=== PATIENT | male | born 1965 | race Caucasian/White ===

== ENCOUNTER 2018-09-09 10:11 | Inpatient (IN) | payer OTHER ==
[~2018-09-09] VITALS: Ht 193 cm; Wt 158.5 kg
[2018-09-09 10:21] VITALS: Ht 193 cm; Wt 158.5 kg
--- NOTE | 2018-09-09 11:01 | NUR ---
LAB AT BEDSIDE
--- NOTE | 2018-09-09 11:11 | NUR ---
PT EDUCATED ON MEDICATION PER EMAR, VERBALIZED UNDERSTANDING. MARCELL CASTRO DURING INJECTION. PT TOLERATED WELL. PT STS HE WILL TRY TO GIVE URINE SAMPLE SOON. CALL LIGHT WITHIN REACH.
[2018-09-09 11:23] LABS: CALCIUM 9.8 mg/dL (8.5-10.1); CHLORIDE SERUM 104 mmol/L (98-107); CREATININE SERUM 0.9 mg/dL (0.7-1.3); GFR1 > 60 mL/min; GLUCOSE SERUM 193 mg/dL (74-106); POTASSIUM SERUM 4.6 mmol/L (3.5-5.1); SODIUM SERUM 142 mmol/L (136-145)
[2018-09-09 11:28] LABS: ALBUMIN 3.5 g/dL (3.4-5.0); ALKALINE PHOSPHATASE 82 U/L (46-116); ALT/SGPT 32 U/L (16-63); AST/SGOT 15 U/L (15-37); BILIRUBIN TOTAL 0.5 mg/dL (0.20-1.00); TOTAL PROTEIN, SERUM 7.6 g/dL (6.4-8.2)
[2018-09-09 11:58] LABS: PLATELET COUNT 187 x10^3mcL (130-400); RED CELL DISTRIBUTION WIDTH 14.1 % (11.5-14.5)
--- NOTE | 2018-09-09 11:58 | NUR ---
AT BEDSIDE DISCUSSING POC WITH PT
[2018-09-09 11:59] LABS: BASOPHIL % 0.3 % (0-2)
[2018-09-09 12:15] LABS: UA SPECIFIC GRAVITY >=1.030 (1.005-1.035); microscopic required? YES; urine erythrocyte 1+ (NEGATIVE)
[2018-09-09] MEDS ORDERED: CORE25 (12:36)
[2018-09-09] MEDS ORDERED: NOR10T (12:37)
[2018-09-09] MEDS ORDERED: LOSARTAN POTASS25 M1 (12:37)
--- NOTE | 2018-09-09 12:59 | NUR ---
CALLED REPORT TO STEFANIA GRANT IN TELE TO ASSUME CARE OF PT.
[2018-09-09 13:26] VITALS: BP 153/71
--- NOTE | 2018-09-09 13:29 | NUR ---
RECEIVED PT FROM ED [facility]IA [facility]. ORIENTED PT TO ROOM AND SURROUNDINGS. IV NOTED TO LAC PATENT AND INTACT. TELE 4 PLACED ON PT READING NSR. INSTRUCTED PT ON THE USE OF CALL LIGHT FOR ASSISTANCE. ENDORSED PT TO PRIMARY NURSE JUANITA
--- NOTE | 2018-09-09 14:19 | NUR ---
ECHOCARDIOGRAM PENDING-WITH NURSE
--- NOTE | 2018-09-09 15:02 | NUR ---
ECHO IN PROGRESS.
--- NOTE | 2018-09-09 15:53 | NUR ---
SPOT GLU CHECK 134. PT RESTING IN BED, NO C/O CHEST PAIN AT THIS TIME. IVF STARTED AND INFUSING WELL.
[2018-09-09 16:24] VITALS: BP 118/65
--- NOTE | 2018-09-09 18:36 | NUR ---
REMAINS IN NO DISTRESS, AWAKE AND ALERT. NO CHANGES IN VS. NO C/O CHEST PAIN AT THIS TIME.IVF INFUSING WELL AND SITE CLEAR. CALL LIGHT WITHIN REACH. WILL BE ENDORSED TO INCOMING SHIFT.
--- NOTE | 2018-09-09 18:58 | NUR ---
C/O LT FLANK PAIN 12/03, MEDICATED WITH NORCO PO PER ORDER. WILL BE ENDORSED TO INCOMING SHIFT.
[2018-09-09 19:48] VITALS: BP 112/64
--- NOTE | 2018-09-09 19:53 | NUR ---
PT CURRENTLY RESTING IN BED, NO ACUTE DISTRESS. A/O X4. TELE #4 SHOWING SINUS RHYTHM, DENIES CHEST PAIN. PULSES PALPABLE IN ALL EXTREMITIES, BLE EDEMA +2 NOTED. LUNG SOUNDS CTA BILATERALLY, DENIES SOB. BOWEL SOUNDS ACTIVE, LAST BM 09/09/18. PT REPORTS DYSURIA. AMBULATORY. SKIN INTACT. IV PATENT AND INTACT. BED IN LOWEST POSITION, SIDE RAILS UP X2, CALL LIGHT WITHIN REACH. WILL CONTINUE TO MONITOR.
--- NOTE | 2018-09-10 01:28 | NUR ---
PT CURRENTLY RESTING IN BED, NO ACUTE DISTRESS. WILL CONTINUE TO MONITOR.
[2018-09-10 04:52] VITALS: BP 139/73
--- NOTE | 2018-09-10 05:01 | NUR ---
INFORMED BY TELE, PT EXPERIENCED BRIEF EPISODE OF VTACH. NO ACUTE DISTRESS. VITAL SIGNS STABLE, PT CURRENTLY RESTING IN BED. DR ANH MCKEON. WILL CONTINUE TO MONITOR.
--- NOTE | 2018-09-10 06:02 | NUR ---
PT SLEPT PERIODICALLY THROUGHOUT NIGHT, NO ACUTE DISTRESS. ALL NEEDS MET AND ATTENDED TO. NO SIGNIFICANT CHANGES. IV PATENT AND INTACT. BED IN LOWEST POSITION, SIDE RAILS UP X2, CALL LIGHT WITHIN REACH. WILL ENDORSE CARE TO ONCOMING NURSE.
[2018-09-10 07:14] LABS: BASOPHIL % 0.4 % (0-2); PLATELET COUNT 142 x10^3mcL (130-400); RED CELL DISTRIBUTION WIDTH 14.5 % (11.5-14.5)
--- NOTE | 2018-09-10 07:15 | NUR ---
RECIEVED PT FROM NIGHT NURSE. PT IS LAYING DOWN IN BED WITH HOB UP. RESPIRATIONS EVEN AND UNLABORED ON ROOM AIR. PT LOOKS TO BE IN NO ACUTE DISTRESS AT THIS TIME. TELE MONITOR PRESENT. IV SITE PATENT WITH NO SIGNS OF ERYTHEMA OR SWELLING WITH IV FLUIDS INFUSING. BED IN LOWEST POSITION, CALL LIGHT WITHIN REACH. WILL CONITNUE TO MONITOR.
[2018-09-10 07:22] LABS: CALCIUM 8.9 mg/dL (8.5-10.1); CARBON DIOXIDE 29.6 mmol/L (21-32); CHLORIDE SERUM 105 mmol/L (98-107); CREATININE SERUM 0.8 mg/dL (0.7-1.3); GFR1 > 60 mL/min; GLUCOSE SERUM 128 mg/dL (74-106); POTASSIUM SERUM 4.3 mmol/L (3.5-5.1); SODIUM SERUM 142 mmol/L (136-145)
--- NOTE | 2018-09-10 07:35 | NUR ---
IV IS BEEPING HIGH PRESSURE ALARM. IV SITE FLUSHING WELL AND HAS NO SIGNS OF ERYTHEMA OR SWELLING. PT IS REQUESTING TO HAVE A NEW IV TO PREVENT BEEPING SINCE PT STATES HE DID NOT GET MUCH SLEEP LAST NIGHT RELATED TO THE IV BEEPING. WILL START NEW IV.
[2018-09-10 08:11] VITALS: BP 151/98
--- NOTE | 2018-09-10 09:15 | NUR ---
ASSESSED PT FROM NEW IV SITE. PT REFUSD IV TO HANDS, OTHER THAN THE HANDS, WAS UNABLE TO FIND A GOOD IV SITE TO START A NEW IV. PT STATED OKAY WITH KEEPING OLD IV AND STATED WILL TRY NOT TO MOVE THE ALARM TO PREVENT HIGH PRESSURE ALARM TO IV. WILL CONTINUE TO MONITOR.
[2018-09-10 13:11] VITALS: BP 145/87
--- NOTE | 2018-09-10 15:45 | NUR ---
PT TRANSFERED TO MED SURG. REMOVED TELE MONITOR AND RETURNED TO TELE STATION.
[2018-09-10 17:14] VITALS: BP 148/85
--- NOTE | 2018-09-10 18:33 | NUR ---
PT IS LAYING DOWN IN BED WITH HOB UP TALKING ON THE PHONE. PT LOOKS TO BE IN NO ACUTE DISTRESS AT THIS TIME AND STATES PAIN IS TOLERABLE AT THIS TIME. PT IS REQUESTING TO HAVE A PAIN MEDICATION PRESCRIPTION UPON DISCHARGE AND IS REQUESTING NORCO BY NAME. IV SITE PATENT WITH NO SIGNS OF ERYTHEMA OR SWELLING WITH IV FLUIDS INFUSING. BED IN LOWEST POSITION, CALL LIGHT WITHIN REACH. WILL ENDORSE TO ONCOMING SHIFT.
--- NOTE | 2018-09-10 19:48 | NUR ---
PT CURRENTLY RESTING IN BED, NO ACUTE DISTRESS. A/O X4. NO TELE, MED/SURG. DENIES CHEST PAIN. PULSES PALPABLE IN ALL EXTREMITIES, BLE EDEMA +1 NOTED. LUNG SOUNDS CTA BILATERALLY, DENIES SOB. BOWEL SOUNDS ACTIVE, LAST BM 09/09/18. VOIDING WELL. LEFT FLANK PAIN 2/10, WORSENS WITH MOVEMENT. AMBULATORY. SKIN INTACT. IV PATENT AND INTACT. BED IN LOWEST POSITION, SIDE RAILS UP X2, CALL LIGHT WITHIN REACH. WILL CONTINUE TO MONITOR.
[2018-09-10 20:12] VITALS: BP 140/80
--- NOTE | 2018-09-11 00:46 | NUR ---
PT CURRENTLY RESTING IN BED, NO ACUTE DISTRESS. WILL CONTINUE TO MONITOR.
[2018-09-11 05:40] VITALS: BP 133/76
[2018-09-11 07:07] LABS: BASOPHIL % 0.4 % (0-2); PLATELET COUNT 136 x10^3mcL (130-400)
[2018-09-11 07:30] LABS: RED CELL DISTRIBUTION WIDTH 14.9 % (11.5-14.5)
[2018-09-11 07:35] VITALS: BP 143/82
[2018-09-11 07:44] LABS: CALCIUM 8.9 mg/dL (8.5-10.1); CARBON DIOXIDE 26.2 mmol/L (21-32); CHLORIDE SERUM 106 mmol/L (98-107); CREATININE SERUM 0.8 mg/dL (0.7-1.3); GFR1 > 60 mL/min; GLUCOSE SERUM 131 mg/dL (74-106); POTASSIUM SERUM 4.1 mmol/L (3.5-5.1); SODIUM SERUM 141 mmol/L (136-145)
--- NOTE | 2018-09-11 08:57 | NUR ---
AT 0710 - RECEIVED PATIENT FROM NIGHT NURSE. AWAKE, ALERT AND ORIENTED. PATIENT WANTS TO GO HOME TODAY. AT 0800 - TALKING OVER THE PHONE. HAS EATEN BREAKFAST.
[2018-09-11] MEDS ORDERED: ATORVASTATIN CA40 M1 PO (09:39)
[2018-09-11] MEDS ORDERED: LOSARTAN POTASS25 M1 PO (09:41)
[2018-09-11] MEDS ORDERED: CORE25 PO (09:42)
[2018-09-11] MEDS ORDERED: ECO81 PO (09:44)
[2018-09-11] MEDS ORDERED: TOR10 PO (09:46)
[2018-09-11 10:39] VITALS: BP 143/82
--- NOTE | 2018-09-11 10:59 | NUR ---
AT 0920 - C/O LEFT FLAMK PAIN AND MEDICATED WITH NORCO PER EMAR. RECEIVED DISCHARGE ORDERS. AT 1015 - RECEIVED CALL FROM [facility]. PATIENT HAS TRANSPORT BY [employer]. PICK-UP TIME AT 1100. AT 1045 - PRINTED DISCHARGE INSTRUCTIONS GIVEN AND EXPLAINED TO PATIENT. PRESCRIPTION PROVIDED. IV CATHETER REMOVED INTACT. PREPARED FOR DISCHARGE.
--- NOTE | 2018-09-11 11:14 | NUR ---
DISCHARGED HOME WITH [employer] [facility]. PATIENT ESCORTED TO FRONT LOBBY BY ELECTRONIC ASSEMBLER.
== END 2018-09-11 11:16 | disposition home or self-care (01) | DRG 311 ==
LOC: ED 10:11 → DU 12:20 → MU 12:20 → DU 13:25 → MU 09-10 15:13
PROVIDERS: Emergency Medicine; ADMIT Internal Medicine
DX: I24.9 Acute ischemic heart disease, unspecified (principal); I42.9 Cardiomyopathy, unspecified; I50.22 Chronic systolic (congestive) heart failure; Z68.41 Body mass index [BMI] 40.0-44.9, adult; I11.0 Hypertensive heart disease with heart failure; E11.65 Type 2 diabetes mellitus with hyperglycemia; N20.0 Calculus of kidney; E78.5 Hyperlipidemia, unspecified; F41.1 Generalized anxiety disorder; F12.10 Cannabis abuse, uncomplicated; E66.01 Morbid (severe) obesity due to excess calories; Z95.810 Presence of automatic (implantable) cardiac defibrillator; Z87.891 Personal history of nicotine dependence; Z88.0 Allergy status to penicillin; Z89.421 Acquired absence of other right toe(s); Z79.84 Long term (current) use of oral hypoglycemic drugs; Z60.2 Problems related to living alone; Z91.11 Patient's noncompliance with dietary regimen
CPT/HCPCS: 82962; G0378; J1650; J1885; J7030; Q0092

== ENCOUNTER 2018-09-15 04:24 | Inpatient (IN) | payer OTHER ==
[~2018-09-15] VITALS: Ht 193 cm; Wt 161.1 kg
[~2018-09-15 04:24] MED LIST: ATORVASTATIN CA40 M1 PO; CORE25; CORE25 PO; ECO81 PO; LOSARTAN POTASS25 M1; LOSARTAN POTASS25 M1 PO; NOR10T; TOR10 PO
[2018-09-15 04:30] VITALS: Ht 193 cm; Wt 161.1 kg
--- NOTE | 2018-09-15 04:38 | NUR ---
PT TAKEN TO ROOM 4 AT THIS TIME VIA WHEELCHAIR BY REHAN AGUIAR. EKG IN PROGRESS AT BEDSIDE BY MARCELL JOSEPH.
--- NOTE | 2018-09-15 05:57 | NUR ---
BLOOD DRAW IN PROGRESS AT BEDSIDE
[2018-09-15 06:43] LABS: BASOPHIL % 0.4 % (0-2); CALCIUM 8.7 mg/dL (8.5-10.1); CARBON DIOXIDE 26.9 mmol/L (21-32); CHLORIDE SERUM 106 mmol/L (98-107); CREATININE SERUM 0.9 mg/dL (0.7-1.3); GFR1 > 60 mL/min; GLUCOSE SERUM 181 mg/dL (74-106); PLATELET COUNT 168 x10^3mcL (130-400); POTASSIUM SERUM 4.2 mmol/L (3.5-5.1); SODIUM SERUM 139 mmol/L (136-145)
[2018-09-15 06:44] LABS: RED CELL DISTRIBUTION WIDTH 14.8 % (11.5-14.5)
[2018-09-15 06:55] LABS: ALBUMIN 3.2 g/dL (3.4-5.0); ALKALINE PHOSPHATASE 89 U/L (46-116); ALT/SGPT 29 U/L (16-63); AST/SGOT 12 U/L (15-37); BILIRUBIN TOTAL 0.26 mg/dL (0.20-1.00); TOTAL PROTEIN, SERUM 7.2 g/dL (6.4-8.2)
--- NOTE | 2018-09-15 07:12 | NUR ---
RECIEVED REPORT FROM STEFANIA VAN
--- NOTE | 2018-09-15 08:48 | NUR ---
AT BEDSIDE DISCUSSING POC WITH PT
--- NOTE | 2018-09-15 11:27 | NUR ---
PT IS SLEEPING ON GURNEY, CONNECTED TO FULL CARDIAC MONTIOR; CALL LIGHT IS WITHIN REACH.
--- NOTE | 2018-09-15 12:09 | NUR ---
REPORT TO GIVEN TO STEFANIA PRICE
--- NOTE | 2018-09-15 12:17 | NUR ---
PT PROVIDED WITH LUNCH TRAY
[2018-09-15 12:57] VITALS: BP 167/75
--- NOTE | 2018-09-15 13:00 | NUR ---
RECEIVED PT FROM ED VIA [facility]. ORIENTED PT TO ROOM AND SURROUNDINGS. IV NOTED TO RAC PATENT AND INTACT. TELE 25 PLACED ON PT READING NSR. INSTRUCTED PT ON THE USE OF CALL LIGHT FOR ASSISTANCE. ENDORSED PT TO PRIMARY NURSE KEYSHAWN
--- NOTE | 2018-09-15 13:15 | NUR ---
ASSUMED CARE OF PATINET. PT AWAKE, ALERT A/OX4. PT ON ROOM AIR WITH NO RESP DISTRESS NOTED. IV ACCESS RAC C/D/I SALINE LOCKED. PT REPORTS LEFT FLANK PAIN AT THIS TIME, TOLERABLE. ACTIVE BS NOTED. PT REPORTS BM THIS MORNING. NO ISSUES WITH ELIMINATION AT THIS TIME. PT ORIENTED TO ROOM. SAFETY MEASURES IN PLACE, BED LOW AND LOCKED. CALL LIGHT WITHIN REACH.
[2018-09-15 15:27] LABS: CHOLESTEROL/HDL RATIO 3.7; MAGNESIUM 1.9 mg/dL (1.8-2.4); PHOSPHOROUS 2.8 mg/dL (2.5-4.9)
--- NOTE | 2018-09-15 16:21 | NUR ---
SECOND TROPONIN 0.144 (0.134). DR MICHELLE HAINES.
[2018-09-15 16:35] VITALS: BP 147/84
--- NOTE | 2018-09-15 18:19 | NUR ---
PT SITTING IN BED EATING DINNER. PT REPORTS PAIN TOLERABLE AT THIS TIME AND WHEN HE NEEDS IT, HE WILL ASK FOR IT. PT REPORTS HE ONLY WANTS THE PAIN MEDS WHEN ABSOULUTELY NECESSARY. NO ACUTE DISTRESS NOTED AT THIS TIME. ALL NEEDS TENDED TO THROUGHOUT SHIFT. WILL CONTINUE TO MONITOR AND ENDORSE TO CONTINUITY EDITOR.
--- NOTE | 2018-09-15 20:00 | NUR ---
PT IS A/O X4. PT IS TELE #25 HR 87. PT DENIES ANY CHEST PAIN OR SOB AT THIS TIME. PT PULSES PALPABLE, EDEMA NOTED TO BLE. PT LUNG SOUNDS DIMINSHED BILATERALLY. NO RESP DISTRESS NOTED. PT BREATHE SOUNDS EVEN AND UNLABORED. PT HAS ACTIVE BOWEL SOUNDS, LAST BM 09/15. PT ABLE TO VOID REGULARLY. ACTIVITY TOLERATED. PT DENIES ANY PAIN AT THIS TIME. PT HAS IV RAC CDI. WILL CONT TO MONITOR. CALL LIGHT WITHIN REACH.
[2018-09-15 20:39] VITALS: BP 147/18
--- NOTE | 2018-09-15 21:01 | NUR ---
PT C/O OF PAIN. GAVE NORCO X1 PER MD ORDER. WILL CONT TO MONITOR.
--- NOTE | 2018-09-16 00:11 | NUR ---
SPOKE TO DR WINKLER IN REGARDS TO ELEVATED TROPONIN LEVEL 0.151. NO NEW ORDERS FOR TROPONIN. WILL CONT TO MONITOR.
--- NOTE | 2018-09-16 00:40 | NUR ---
PT ASLEEP IN ROOM. BREATHING EVEN AND UNLABORED. NO RESP DISTRESS NOTED. PT EASILY AROUSABLE TO VERBAL STIMULI. WILL CONT TO MONITOR. CALL LIGHT WITHIN REACH. PT DENIES ANY SOB OR CHEST PAIN AT THIS TIME.
--- NOTE | 2018-09-16 05:36 | NUR ---
PT SLEPT THROUGH OUT THE NIGHT. PT IS ON TELE #25 NSR PACED ON DEMAND HR 78. PT DENIES ANY CHEST PAIN OR SOB AT THIS TIME. PT HAS SCD IN PLACE. PT BREATHE SOUNDS EVEN AND UNLABORED. NO RESP DISTRESS NOTED. PT DENIES ANY FLANK PAIN AT THIS TIME. PT IV TO [facility]. MADE AWARE OF ELEVATED TROPONIN LEVELS, NO NEW ORDERS. NO ACUTE CHANGES THROUGH OUT THE NIGHT. PT WAS COOPERATIVE WITH NURSING CARE. WILL EDNORSE CARE TO DAY SHIFT NURSE, CALL LIGHT WITHIN REACH.
[2018-09-16 05:57] VITALS: BP 126/59
--- NOTE | 2018-09-16 07:40 | NUR ---
PATIENT RESTING IN BED, NO ACUTE DISTRESS NOTED. TELE MONITOR IN PLACE, PATIENT DENIES CHEST PAIN. NO RESPIRATORY DISTRESS NOTED, PATIENT ON ROOM AIR, DENIES SOB. PATIENT STATES "PAIN WILL COME AND GO, BUT I AM FINE RIGHT NOW." EDUCATED PATIENT ON PAIN MANAGEMENT. PATIENT DENIES PAIN OR BURNING UPON URINATION. IV TO RAC SALINE LOCK, NO S/S OF INFILTRATION. CALL LIGHT WITHIN REACH, BED IN LOW POSITION, WILL CONTINUE TO MONITOR FOR CHANGES.
[2018-09-16 09:00] VITALS: BP 156/79
--- NOTE | 2018-09-16 10:11 | NUR ---
PATIENT C/O OF 10/03 FLANK PAIN, EDUCATED PATIENT IF HE WAS HAVING SEVERE PAIN I CAN MEDICATE WITH MORPHINE, PATIENT STATED HE COULD TOLERATE PAIN WITH A NORCO. EDUCATED PATIENT ON PAIN MANAGEMENT, AND PREVENTING BREAK THROUGH PAIN. PATIENT VERBALIZED UNDERSTANDING. WILL CONTINUE TO MONITOR, AND MANAGE PAIN. CALL LIGHT WITHIN REACH, BED IN LOW POSITION.
--- NOTE | 2018-09-16 13:00 | NUR ---
PATIENT RESTING IN BED, WATCHING TV. NO ACUTE DISTRESS NOTED AT THIS TIME, PATIENT STATES PAIN IS INTERMITTENT, BUT HAS BEEN BETWEEN 2&3 AND IS TOLERABLE. WILL CONTINUE TO MONITOR AND MANAGE PAIN, CALL LIGHT WITHIN REACH, BED IN LOW POSITION.
[2018-09-16 13:24] VITALS: BP 143/84
[2018-09-16 17:30] VITALS: BP 161/84
--- NOTE | 2018-09-16 17:50 | NUR ---
PATIENT IS RESTING IN BED, NO ACUTE CHANGES NOTED THROUGH OUT SHIFT, PATIENT IS STABLE. DENIES SOB, ON ROOM AIR. DENIES CHEST PAIN. IV TO RAC SALINE LOCK, NO S/S OF INFILTRATION. CALL LIGHT WITHIN REACH, BED IN LOW POSITION, WILL ENDORSE REPORT TO NIGHT RN.
[2018-09-16 20:53] VITALS: BP 145/77
--- NOTE | 2018-09-16 21:23 | NUR ---
Awake and verbally responsive. No respiratory distress noted on room air. Denies pain at this time. Denies n/v. Ambulating. All due meds taken. Will cont.to monitor. Call light within reach.
--- NOTE | 2018-09-17 03:44 | NUR ---
Afebrile. No significant change in condition noted. Denies further left flank pain. [place] 1 tab with relief. In no apparent distress.
[2018-09-17 04:53] VITALS: BP 148/83
[2018-09-17 06:39] LABS: BASOPHIL % 0.4 % (0-2); PLATELET COUNT 165 x10^3mcL (130-400)
[2018-09-17 06:51] LABS: RED CELL DISTRIBUTION WIDTH 14.8 % (11.5-14.5)
--- NOTE | 2018-09-17 07:40 | NUR ---
RECEIVED BEDSIDE REPORT FROM RESEARCH WORKER ENCYCLOPEDIA NURSE AT THIS TIME. PATIENT RESTING COMFORTABLY IN BED. NO APPARENT DISTRESS OR DISCOMFORT NOTED. BREATHING EVEN AND UNLABORED. NO RESPIRATORY DISTRESS NOTED. PATIENT DENIES SHORTNESS OF BREATH. PATIENT DENIES CHEST PAIN/PRESSURE AT THIS TIME. IV PATENT AND INTACT. ALL QUESTIONS AND CONCERNS ADDRESSED. ALL NEEDS ATTENDED TO. WILL CONTINUE TO MONITOR
[2018-09-17 09:14] VITALS: BP 137/68
[2018-09-17 09:59] LABS: CALCIUM 9.1 mg/dL (8.5-10.1); CARBON DIOXIDE 28.2 mmol/L (21-32); CHLORIDE SERUM 105 mmol/L (98-107); CREATININE SERUM 0.8 mg/dL (0.7-1.3); GFR1 > 60 mL/min; GLUCOSE SERUM 115 mg/dL (74-106); MAGNESIUM 1.7 mg/dL (1.8-2.4); PHOSPHOROUS 4.1 mg/dL (2.5-4.9); POTASSIUM SERUM 3.9 mmol/L (3.5-5.1); SODIUM SERUM 141 mmol/L (136-145)
--- NOTE | 2018-09-17 10:58 | NUR ---
ALL MORNING MEDICATIONS ADMINISTERED. PATIENT TOLERATED WELL. NO ADVERSE EFFECTS NOTED. NO APPARENT DISTRESS OR DISCOMFORT NOTED. ALL NEEDS ATTENDED TO. WILL CONTINUE TO MONITOR
--- NOTE | 2018-09-17 11:36 | NUR ---
PATIENT BLOOD SUGAR 142 AT THIS TIME. NO INSULIN COVERAGE REQUIRED. ALL NEEDS ATTENDED TO. WILL CONTINUE TO MONITOR
[2018-09-17 14:14] VITALS: BP 137/68
--- NOTE | 2018-09-17 15:00 | NUR ---
SPOKE TO PATIENT REGARDING DISCHARGE AT THIS TIME. PER PATIENT HE DOES NOT WANT TO BE DISCHARGED TODAY DUE TO FEAR OF COMING BACK 1-2 DAYS FROM NOW FOR THE SAME SYMPTOMS. PATIENT REQUESTING TO SPEAK WITH CASE MANAGEMENT AT THIS TIME. CALLED CASE MANAGEMENT AND SPOKE WITH LEANNE HAYNES. ALL QUESTIONS AND CONCERNS ADDRESSED.
[2018-09-17 17:21] VITALS: BP 137/82
--- NOTE | 2018-09-17 17:25 | NUR ---
PATIENT APPEALED DISCHARGE AT THIS TIME. PATIENT PROVIDED NUMBER FOR [facility]. PATIENT GIVEN ). ANNE MARIE FROM [employer] MADE AWARE AND PROVIDED PATIENTS CASE NUMBER. DR MARTINEZ AWARE PATIENT HAS APPEALED DISCHARGE AT THIS TIME. ALL QUESTIONS AND CONCERNS ADDRESSED. WILL CONTINUE TO MONITOR
--- NOTE | 2018-09-17 17:55 | NUR ---
PATIENT SITTING UP IN BED EATING DINNER AT THIS TIME. PATIENT TOLERATING DIET WELL. NO APPARENT DISTRESS OR DISCOMFORT NOTED. ALL NEEDS ATTENDED TO. WILL CONTINUE TO MONITOR
--- NOTE | 2018-09-17 18:34 | NUR ---
PATIENT RESTING COMFORTABLY IN BED AT THIS TIME. NO APPARENT DISTRESS OR DISCOMFORT NOTED. IV PATENT AND INTACT. ALL QUESTIONS AND CONCERNS ADDRESSED. ALL NEEDS ATTENDED TO. SAFETY PRECAUTIONS MAINTAINED. WILL ENDORSE ALL CARE TO DENTAL OFFICE MANAGER NURSE
--- NOTE | 2018-09-17 19:41 | NUR ---
Awake and verbally responsive. No respiratory distress noted on room air. Denies pain. Denies n/v. Cont.on plan of care. Pending discharge home. Will cont.to monitor. Call light within reach.
[2018-09-17 20:40] VITALS: BP 138/77
--- NOTE | 2018-09-18 04:20 | NUR ---
Afebrile. No significant change in condition noted. Denies pain. Denies dysuria or hematuria. In no apparent distress.
[2018-09-18 05:05] VITALS: BP 131/69
[2018-09-18 06:49] LABS: BASOPHIL % 0.4 % (0-2); PLATELET COUNT 157 x10^3mcL (130-400); RED CELL DISTRIBUTION WIDTH 14.4 % (11.5-14.5)
[2018-09-18 06:55] LABS: CALCIUM 9.1 mg/dL (8.5-10.1); CARBON DIOXIDE 26.6 mmol/L (21-32); CHLORIDE SERUM 104 mmol/L (98-107); CREATININE SERUM 0.8 mg/dL (0.7-1.3); GFR1 > 60 mL/min; GLUCOSE SERUM 120 mg/dL (74-106); MAGNESIUM 1.9 mg/dL (1.8-2.4); PHOSPHOROUS 4.1 mg/dL (2.5-4.9); POTASSIUM SERUM 4.2 mmol/L (3.5-5.1); SODIUM SERUM 141 mmol/L (136-145)
--- NOTE | 2018-09-18 07:30 | NUR ---
RECEIVED PATIENT AWAKE/ALERT IN BED STATES PAIN IS OKAY, 3/10 LT FLANK PAIN. NO ACUTE DISTRESS NOTED, M/S. IV TO RAC INTACT AND SL NOTED. POC EXPLAINED. CONT TO MONITOR.
--- NOTE | 2018-09-18 08:33 | NUR ---
PATIENT C/O 09/02 LT FLANK PAIN NORCO 1 TAB PO, PO MEDS ADMINISTERED. NEEDS MET. CALL LIGHT IN REACH.
[2018-09-18 08:59] VITALS: BP 137/78
--- NOTE | 2018-09-18 11:43 | NUR ---
PATIENT RESTING IN BED AWAKE/ALERT NO COMPLAINS. CHECK BS 140 NO COVERAGE NEEDED. INFORM PATIENT WILL CALL [facility] FOR PATIENT. NEEDS MET. CALL LIGHT WITHIN REACH.
--- NOTE | 2018-09-18 13:00 | NUR ---
LEE KHALIL CAME TO SPEAK WITH PATIENT, PATIENT EXPRESS WANT TO GO HOME. CM INFORM PATIENT TO CALL [facility] TO CANCEL APPEAL. PATIENT INFORM RN THAT HE HAS CALL [facility] TO CANCEL THE APPEAL.
--- NOTE | 2018-09-18 15:38 | NUR ---
PAGE DR. MARTINEZ FOR DISCHARGE ORDER. DOCTOR WAS INFORM AND WILL WORK ON DISCHARGE PROCESS.
--- NOTE | 2018-09-18 16:39 | NUR ---
PATIENT RESTING IN BED CALN, NO COMPLAIN PAIN AT THIS TIME. BS 120 NO COVERAGE NEEDED, CALL LIGHT WITHIN REACH.
[2018-09-18 16:45] VITALS: BP 137/74
[2018-09-18 17:47] VITALS: BP 137/74
--- NOTE | 2018-09-18 18:10 | NUR ---
PATIENT RESTING IN BED DISCHARGE INSTRUCTIONS AND PRESCRIPTION (TORADOL) EXPLAINED, PATIENT STATES THAT HE HAS TORADOL AT HOME AND NOT WORKING; PATIENT TELL RN THAT DOCTOR TOLD HIM WILL PRESCRIBED NORCO; WILL ASK DR. MARTINEZ EXPLAINED TO PATIENT.
--- NOTE | 2018-09-18 18:25 | NUR ---
DR. BROOKS AT BEDSIDE TALK TO PATIENT RE: PAIN NORCO; PATIENT AGREE TO TRY TORADOL. IV RAC REMOVED W/ CATHETER INTACT. APPLIED BA TO SITE. NO S/S OF INFECTION. PATIENT GETTING DRESS, INVENTORY CHECKER AT BEDSIDE TO WHEEL PATIENT OUT. ALL BELONGINGS WITH PATIENT.
== END 2018-09-18 18:39 | disposition home or self-care (01) | DRG 313 ==
LOC: ED 04:24 → DU 10:05 → MU 09-16 16:36
PROVIDERS: ADMIT General Practice
DX: R07.89 Other chest pain (principal); Z68.41 Body mass index [BMI] 40.0-44.9, adult; I42.0 Dilated cardiomyopathy; E11.65 Type 2 diabetes mellitus with hyperglycemia; I10 Essential (primary) hypertension; N20.0 Calculus of kidney; F15.10 Other stimulant abuse, uncomplicated; F41.8 Other specified anxiety disorders; Z99.3 Dependence on wheelchair; Z89.422 Acquired absence of other left toe(s); Z89.421 Acquired absence of other right toe(s); Z87.891 Personal history of nicotine dependence; Z79.84 Long term (current) use of oral hypoglycemic drugs; Z95.810 Presence of automatic (implantable) cardiac defibrillator
CPT/HCPCS: 82962; 83880; G0378; J2405; Q0092